=== PATIENT | male | born 1985 | race Caucasian/White ===

== ENCOUNTER 2019-02-05 18:02 | Emergency (ER) | payer BC, OTHER ==
--- NOTE | 2019-02-05 18:40 | ED ---
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 He notes that his testicles feel full and tender. 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 He rates his current pain severity a 2/10. No alleviating factors noted. He denies trauma. He also denies any fever, vomiting , dysuria, or burning. - History of Current Complaint Chief Complaint: EDAbdPain Stated Complaint: LOWER ABD PAIN PER PT Time Seen by Provider: 02/05/19 18:31 Hx Obtained From: Patient Onset/Duration: Gradual Onset, Lasting Days, Still Present Timing: Constant Severity Initially: Mild Severity Currently: Mild Pain Intensity: 2 Pain Scale Used: 0-10 Numeric Location: Discrete At: RLQ, Discrete At: LLQ, Suprapubic Radiates: Yes Radiates to: Other - testicles Aggravating Factor(s): Nothing Alleviating Factor(s): Nothing Associated Signs And Symptoms: Positive: Negative - dysuria, burning, Other - pos - testicular pain. Negative: Fever, Vomiting - Allergies/Home Medications Allergies/Adverse Reactions: Allergies Allergy/AdvReac Type Severity Reaction Status Date / Time No Known Allergies Allergy Verified 02/05/19 18:13 PMH/Surg Hx/FS Hx/Imm Hx Sensory History: Denies: Hx Legally Blind, Hx Deafness Opthamlomology History: Denies: Hx Legally Blind EENT History: Denies: Hx Deafness - Surgical History Surgical History: None Surgery Procedure, Year, and Place: none Infectious Disease History: No Infectious Disease History: Denies: Traveled Outside the [place] in Last 30 Days - Family History Known Family History: Negative: Cardiac Disease Family History: R & n/C - Social History Alcohol Use: Occasionally Hx Substance Use: No Substance Use Type: Reports: None Hx Tobacco Use: No Smoking Status (MU): Never Smoked Tobacco Review of Systems Negative: Fever Positive: Abdominal Pain. Negative: Vomiting Genitourinary: Other - pos - testicular pain Negative: burning, dysuria All Other Systems Reviewed And Are Negative: Yes Physical Exam - Summary Physical Exam Summary: Constitutional: Well-developed, Well-nourished, Alert. (-) Distressed Skin: Warm, Dry HENT: Normocephalic; Atraumatic Eyes: Conjunctiva normal Neck: Musculoskeletal ROM normal neck. (-) JVD, (-) Stridor, (-) Tracheal deviation Cardio: Rhythm regular, rate normal, Heart sounds normal; Intact distal pulses; The pedal pulses are 2+ and symmetric. Radial pulses are 2+ and symmetric. (-) Murmur Pulmonary/Chest wall: Effort normal. (-) Respiratory distress, (-) Wheezes, (-) Rales Abd: Soft, (-) tenderness, (-) Distension, (-) Guarding, (-) Rebound, no evidence for hernia Testicular exam: normal appearance, no erythema, no scrotal erythema, normal penis Musculoskeletal: (-) Edema Lymph: (-) Cervical adenopathy Neuro: Alert, Oriented x3 Psych: Mood and affect Normal Triage Information Reviewed: Yes Vital Signs On Initial Exam: Initial Vitals Temp Pulse Resp BP Pulse Ox 97.7 F 58 16 131/78 100 02/05/19 18:10 02/05/19 18:10 02/05/19 18:10 02/05/19 18:10 02/05/19 18:10 Vital Signs Reviewed: Yes Procedures - Sedation Patient Received Moderate/Deep Sedation with Procedure: No Diagnostics - Vital Signs Vital Signs Temp Pulse Resp BP Pulse Ox 02/05/19 18:10 97.7 F 58 16 131/78 100 - Laboratory Lab Statement: Any lab studies that have been ordered have been reviewed, and results considered in the medical decision making process. 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 He notes that his testicles feel full and tender. Final Dx are testicular pain, rule out epididymitis, and rule out testicular torsion. This pt will be a signout to Dr. Bailey at the 1900 02/05/2019 shift change pending UA, testicular US, and disposition. - Diagnoses Provider Diagnoses: Testicular pain Discharge ED - Sign-Out/Discharge Documenting (check all that apply): Sign-Out Patient Signing out patient TO: Sherman Bailey - Discharge Plan Referrals: Sixto Bonilla MD [Primary Care Provider] - - Attestation Statements Document Initiated by Scribe: Yes Documenting Scribe: Ted Baugh Provider For Whom Scribe is Documenting (Include Credential): Dixon Katz Scribe Attestation: I, Ted Baugh, scribed for Dixon Katz on 02/05/19 at 1852.
--- NOTE | 2019-02-05 19:10 | ED ---
Progress - Progress Note Progress Note: Patient is received as a sign-out from Dr. Katz to Dr. Bailey at 1900 shift change pending testicular US and UA. UA showed presence of ascorbic acid. TESTICULAR US IMPRESSION: Sonographically normal testicles and epididymides. THIS REPORT WAS REVIEWED BY DR. BAILEY Re-Evaluation - Re-Evaluation First Eval Re-Evaluation Time: 20:28 Comment: Results of UA and US were discussed with the patient, he was discharged to home with PCP and urology referral. Course/Dx - Course Course Of Treatment: Patient is received as a sign-out from Dr. Katz to Dr. Bailey at 1900 02/05/19 shift change pending testicular US and UA. UA showed presence of ascorbic acid. TESTICULAR US IMPRESSION: Sonographically normal testicles and epididymides. Results of UA and US were discussed with the patient, he was discharged to home with PCP and urology referral. - Diagnoses Provider Diagnoses: Testicular pain Discharge ED - Sign-Out/Discharge Documenting (check all that apply): Patient Departure - discharge , Receiving Sign-Out Receiving patient FROM: Dixon Katz - Discharge Plan Condition: Good Disposition: HOME Patient Education Materials: Testicle Pain (ED) Referrals: Sixto Bonilla MD [Primary Care Provider] - Manjeet Payne MD [Medical Doctor] - Additional Instructions: The US of the scrotum was normal, there is no sign of a vascular problem to the testicles or any other worrisome pathology. If this continues to bother you I would recommend making an appointment with a urologist; I have supplied contact information for our local urology clinic. - Attestation Statements Document Initiated by Scribe: Yes Documenting Scribe: PHILOMENA CHOW Provider For Whom Scribe is Documenting (Include Credential): ANABEL BAILEY MD Scribe Attestation: I, PHILOMENA CHOW, scribed for ANABEL BAILEY MD on 02/05/19 at 2033. Status of Scribe Document: Ready
[2019-02-05 19:25] LABS: Urine Appearance Clear; Urine Bilirubin Negative (Negative); Urine Blood Negative (Negative); Urine Color Yellow; Urine Glucose Negative (Negative); Urine Ketones Negative (Negative); Urine Nitrite Negative (Negative); Urine Protein Negative (Negative); Urine Urobilinogen Negative (Negative)
[2019-02-05 20:40] VITALS: BP 128/65
== END 2019-02-05 20:30 | disposition home or self-care (01) ==
LOC: ED 18:02
DX: N50.812 Left testicular pain (principal); N50.811 Right testicular pain
CPT/HCPCS: 76870; 81003; 99282